=== PATIENT | female | born 1965 | race Caucasian/White ===

== ENCOUNTER 2016-10-22 01:09 | Emergency (ER) | payer BC, OTHER ==
[2016-10-22] MEDS ORDERED: Zofran 4 MG/2 ML VIAL ONE (01:32)
--- NOTE | 2016-10-22 01:34 | ERPHSYRPT ---
- History of Present Illness Time Seen by Provider: 10/22/16 01:15 Source: patient, family, EMS Exam Limitations: clinical condition Patient Subjective Stated Complaint: PT BROUGHT TO ED PER EMS FROM HOME-CALLED TO SCENE DUE TO PT BEING UNRESPONSIVE-EMS ADMINISTERED 2 MG OF NARCAN ET PT BEGAN RESPONDING-PT STATES THAT HE THINKS SHE HAD A SEIZURE-STATES THAT PT LEGS WERE MOVING Triage Nursing Assessment: PT ARRIVED TO ED RESPONSIVE TO VOICE-NOT ANSWERING QUESTIONS-RESP NONLABORED ET SLIGHTLY SHALLOW-PUPILS RESPONSIVE Physician History: Pt. remembers V/D and abd pain after eating at [employer]. states pt. had seizure-like activity. EMS found her unresponsive with response to Narcan, now responsive with CN 2-12 intact. Reported H/O drug abuse for both she and her . 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) Severity: moderate Deficits: no difficulties Baseline/Normal Cognition: alert oriented x 3 Current Cognition: alert/disoriented to time Baseline Gait: walks w/o assistance Associated Symptoms: confusion, nausea, vomiting, weakness, seizures, other ( Abd pain) Allergies/Adverse Reactions: ropinirole [From Requip] Adverse Reaction (Verified 10/22/16 01:50) Vomiting Home Medications: Acyclovir 800 mg [Zovirax 800 mg] 800 mg PO DAILY 10/22/16 [History] Escitalopram Oxalate 20 mg PO DAILY 10/22/16 [History] Ferrous Sulfate 325 mg [Feosol 325 mg] 325 mg PO BID 10/22/16 [History] Levothyroxine Sodium 75 Mcg [Synthroid 75 Mcg] 75 mcg PO DAILY 10/22/16 [ History] Pramipexole Di-HCl 0.5 mg [Mirapex 0.5 MG Tablet] 0.5 mg PO HS 10/22/16 [ History] Hx Tetanus, Diphtheria Vaccination/Date Given: No Hx Influenza Vaccination/Date Given: Yes Hx Pneumococcal Vaccination/Date Given: No Immunizations Up to Date: Yes - Review of Systems Constitutional: Malaise, Weakness Eyes: No Symptoms Ears, Nose, & Throat: No Symptoms Respiratory: No Symptoms Cardiac: No Symptoms Abdominal/Gastrointestinal: Abdominal Pain, Nausea, Vomiting, Diarrhea Genitourinary Symptoms: No Symptoms Musculoskeletal: No Symptoms Skin: No Symptoms Neurological: Seizure Psychological: Drug Abuse Endocrine: No Symptoms Hematologic/Lymphatic: Anemia Immunological/Allergic: No Symptoms - Past Medical History Pertinent Past Medical History: Yes Neurological History: Seizures, Other Other Medical History: HX OF BRAIN BLEED. RESTLESS LEG - Past Surgical History Past Surgical History: Yes Neuro Surgical History: Other - Social History Smoking Status: Never smoker Exposure to second hand smoke: No Drug Use: none Patient Lives Alone: No - Nursing Vital Signs Nursing Vital Signs: Initial Vital Signs Pulse Rate 80 10/22/16 01:11 Respiratory Rate 18 10/22/16 01:11 Blood Pressure 132/75 10/22/16 01:11 O2 Sat by Pulse Oximetry 99 10/22/16 01:11 Pain Scale Pain Intensity 0 - Lizzeth Coma Scale Best Eye Response (Lizzeth): (3) open to voice Best Verbal Response (Yellow Jacket): (5) oriented Best Motor Response (Yellow Jacket): (6) obeys commands Lizzeth Total: 14 - Physical Exam General Appearance: moderate distress Eye Exam: bilateral eye: normal inspection, PERRL, EOMI Respiratory: normal breath sounds, lungs clear, airway intact, No respiratory distress Cardiovascular: regular rate/rhythm, normal heart sounds, normal peripheral pulses Gastrointestinal: soft, normal bowel sounds, tenderness (diffusely), No distention Extremity Exam: normal inspection, normal range of motion, pelvis stable Mental Status: oriented x 3, 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, 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 Exam: normal hearing Motor/Sensory: no motor deficit, no sensory deficit Skin Exam: normal color, warm, dry SpO2 Interpretation: normal SpO2: 99 Oxygen Delivery: Non-rebreather - Course Nursing assessment & vital signs reviewed: Yes EKG Interpreted by Me: RATE (72), Sinus Rhythm, NORMAL AXIS, NORMAL INTERVALS, Other (Lateral T wave flattening.) - Radiology Exams Chest X-ray Interpretation: Interpreted by me, Reviewed by me, Negative - CT Exams Head CT Interpretation: Negative, Tele-radiologist Report Ordered Tests: Active Orders 24 hr Category Date Time Status Accucheck STAT Care 10/22/16 01:46 Active Clinical Sciences Professor STAT Care 10/22/16 01:47 Active Clean Catch Urine Specimen STAT Care 10/22/16 01:46 Active EKG-ER Only STAT Care 10/22/16 01:46 Active IV Insertion STAT Care 10/22/16 01:46 Active NPO (ED) STAT Care 10/22/16 01:46 Active Oxygen-ED Only NASAL CANNULA 2 lpm Care 10/22/16 01:46 Active CHEST 1 VIEW (PORTABLE) Stat Exams 10/22/16 01:47 Taken HEAD WITHOUT CONTRAST [CT] Stat Exams 10/22/16 01:47 Taken ACETAMINOPHEN Stat Lab 10/22/16 03:04 Received CBC W DIFF Stat Lab 10/22/16 02:39 Completed CMP Stat Lab 10/22/16 02:39 Completed ETHYL ALCOHOL Stat Lab 10/22/16 03:04 Received Lactic Acid Stat Lab 10/22/16 02:36 Completed SALICYLATE Stat Lab 10/22/16 03:04 Received UA Stat Lab 10/22/16 02:07 Completed Urine Triage Profile Stat Lab 10/22/16 02:07 Completed Medication Summary Discontinued Medications Generic Name Dose Route Start Last Admin Trade Name Freq PRN Reason Stop Dose Admin Sodium Chloride 1,000 mls @ 999 mls/hr 10/22/16 01:46 10/22/16 01:54 Sodium Chloride 0.9% 1000 Ml IV 10/22/16 02:46 999 mls/hr .Q1H1M STA Administration Sodium Chloride Confirm 10/22/16 01:52 Sodium Chloride 0.9% 1000 Ml Administered 10/22/16 01:53 Dose 1,000 mls @ ud .ROUTE .STK-MED ONE Ondansetron HCl Confirm 10/22/16 01:32 Zofran 4 Mg/2 Ml Vial Administered 10/22/16 01:33 Dose 4 mg .ROUTE .STK-MED ONE Ondansetron HCl 4 mg 10/22/16 01:46 10/22/16 01:54 Zofran 4 Mg/2 Ml Vial IV 10/22/16 01:47 4 mg STAT ONE Administration Lab/Rad Data: Laboratory Result Diagrams 10/22/16 02:39 10/22/16 02:39 Laboratory Results 10/22/16 10/22/16 10/22/16 Range/Units 02:39 02:39 02:36 WBC 14.3 H (4.0-10.5) K/mm3 RBC 3.87 L (4.1-5.4) M/mm3 Hgb 12.9 (12.0-16.0) gm/dl Hct 38.6 (35-47) % MCV 99.7 (78-100) fl MCH 33.3 H (26-32) pg MCHC 33.4 (32-36) g/dl RDW 13.0 (11.5-14.0) % Plt Count 281 (150-450) K/mm3 MPV 8.9 (6-9.5) fl Gran % 78.2 H (36.0-66.0) % Lymphocytes % 12.8 L (24.0-44.0) % Monocytes % 7.5 (0.0-12.0) % Eosinophils % 1.4 (0.00-5.0) % Basophils % 0.1 (0.0-0.4) % Basophils # 0.02 (0-0.4) Sodium 142 (136-145) mEq/L Potassium 3.8 (3.5-5.1) mEq/L Chloride 107 (98-107) mEq/L Carbon Dioxide 25.0 (21-32) mEq/L Anion Gap 13.9 (5-15) MEQ/L BUN 12 (9-20) mg/dL Creatinine 0.85 (0.55-1.30) mg/dl Estimated GFR > 60 ML/MIN Glucose 118 H (70-110) MG/DL Lactic Acid 1.7 (0.4-2.0) Calcium 8.5 (8.5-10.1) mg/dL Total Bilirubin 0.40 (0.2-1.0) mg/dL AST 14 L (15-37) U/L ALT 26 (12-78) U/L Alkaline Phosphatase 71 (46-116) U/L Serum Total Protein 6.9 (6.4-8.2) gm/dL Albumin 3.4 (3.4-5.0) g/dL Ur Collection Type Urine Color (YELLOW) Urine Appearance (CLEAR) Urine pH (5-6) Ur Specific Montara (1.005-1.025) Urine Protein (Negative) Urine Ketones (NEGATIVE) Urine Blood (0-5) Romulo/ul Urine Nitrite (NEGATIVE) Urine Bilirubin (NEGATIVE) Urine Urobilinogen (0-1) mg/dL Ur Leukocyte Esterase (NEGATIVE) Urine Glucose (NEGATIVE) mg/dL Urine Opiates Level (NEGATIVE) Ur Methadone (NEGATIVE) Urine Barbiturates (NEGATIVE) Ur Phencyclidine (PCP) (NEGATIVE) Urine Amphetamine (NEGATIVE) U Benzodiazepine Level (NEGATIVE) Urine Cocaine (NEGATIVE) Urine Marijuana (THC) (NEGATIVE) Specimen Received 10/22/16 10/22/16 Range/Units 02:07 02:07 WBC (4.0-10.5) K/mm3 RBC (4.1-5.4) M/mm3 Hgb (12.0-16.0) gm/dl Hct (35-47) % MCV (78-100) fl MCH (26-32) pg MCHC (32-36) g/dl RDW (11.5-14.0) % Plt Count (150-450) K/mm3 MPV (6-9.5) fl Gran % (36.0-66.0) % Lymphocytes % (24.0-44.0) % Monocytes % (0.0-12.0) % Eosinophils % (0.00-5.0) % Basophils % (0.0-0.4) % Basophils # (0-0.4) Sodium (136-145) mEq/L Potassium (3.5-5.1) mEq/L Chloride (98-107) mEq/L Carbon Dioxide (21-32) mEq/L Anion Gap (5-15) MEQ/L BUN (9-20) mg/dL Creatinine (0.55-1.30) mg/dl Estimated GFR ML/MIN Glucose (70-110) MG/DL Lactic Acid (0.4-2.0) Calcium (8.5-10.1) mg/dL Total Bilirubin (0.2-1.0) mg/dL AST (15-37) U/L ALT (12-78) U/L Alkaline Phosphatase (46-116) U/L Serum Total Protein (6.4-8.2) gm/dL Albumin (3.4-5.0) g/dL Ur Collection Type VOID Urine Color YELLOW (YELLOW) Urine Appearance CLEAR (CLEAR) Urine pH 6.0 (5-6) Ur Specific Mont[place] 1.005 (1.005-1.025) Urine Protein NEGATIVE (Negative) Urine Ketones NEGATIVE (NEGATIVE) Urine Blood NEGATIVE (0-5) Romulo/ul Urine Nitrite NEGATIVE (NEGATIVE) Urine Bilirubin NEGATIVE (NEGATIVE) Urine Urobilinogen NORMAL (0-1) mg/dL Ur Leukocyte Esterase NEGATIVE (NEGATIVE) Urine Glucose NEGATIVE (NEGATIVE) mg/dL Urine Opiates Level NEG. (NEGATIVE) Ur Methadone NEG. (NEGATIVE) Urine Barbiturates NEG. (NEGATIVE) Ur Phencyclidine (PCP) NEG. (NEGATIVE) Urine Amphetamine NEG. (NEGATIVE) U Benzodiazepine Level NEG. (NEGATIVE) Urine Cocaine NEG. (NEGATIVE) Urine Marijuana (THC) NEG. (NEGATIVE) Specimen Received 10/22/16 0200 - Progress Progress: improved Discussed with Dr.: Mack (accepts observation) Counseled pt/family regarding: lab results, diagnosis, rad results - Departure Time of Disposition: 03:20 Departure Disposition: Observation Clinical Impression: Syncope, vasovagal, Seizure Condition: Stable Critical Care Time: No Referrals: ROBIN CRUZ [ACTIVE STAFF] -
[2016-10-22] MEDS ORDERED: Sodium Chloride 0.9% 1000 ML 1,000 ML IV STA (01:46)
[2016-10-22] MEDS ORDERED: Zofran 4 MG/2 ML VIAL IV ONE (01:46)
[2016-10-22] MEDS ORDERED: Sodium Chloride 0.9% 1000 ML 1,000 ML ONE (01:52)
[2016-10-22 02:11] LABS: Bilirubin NEGATIVE (NEGATIVE); Blood NEGATIVE Ery/ul (0-5); COMPLETE URINE MICROSCOPIC? NO; Collection Type VOID; Glucose NEGATIVE (NEGATIVE); Leukocyte Esterase NEGATIVE (NEGATIVE)
[2016-10-22 02:42] LABS: BASOPHIL % 0.1 % (0.0-0.4); Eosinophil % 1.4 % (0.00-5.0); Granulocytes % 78.2 % (36.0-66.0); Lymphocytes % 12.8 % (24.0-44.0); Mean Cell Volume 99.7 fl (78-100); Mean Corpuscular Hemoglobin 33.3 pg (26-32); Mean Platelet Volume 8.9 fl (6-9.5); Monocytes % 7.5 % (0.0-12.0); Platelet Count 281 K/mm3 (150-450); Red Blood Count 3.87 M/mm3 (4.1-5.4); White Blood Count 14.3 K/mm3 (4.0-10.5)
[2016-10-22 02:48] VITALS: BP 105/55; PULSE 81
[2016-10-22 03:06] LABS: ALBUMIN 3.4 g/dL (3.4-5.0); ALKALINE PHOSPHATASE 71 U/L (46-116); ANION GAP 13.9 MEQ/L (5-15); BLOOD UREA NITROGEN 12 mg/dL (9-20); CHLORIDE 107 mEq/L (98-107); Glucose 118 MG/DL (70-110); Potassium 3.8 mEq/L (3.5-5.1); SGOT/AST 14 U/L (15-37); SGPT/ALT 26 U/L (12-78); SODIUM 142 mEq/L (136-145); Total Protein 6.9 gm/dL (6.4-8.2)
[2016-10-22 03:21] LABS: ACETAMINOPHEN < 2.0 ug/ml (10-30); ETHYL ALCOHOL < 0.010 % (0.00-0.01)
[2016-10-22 03:22] VITALS: O2SAT 99
--- NOTE | 2016-10-22 09:26 | XRAY ---
Indication: Seizure. Multiple contiguous axial images obtained through the head without contrast. Comparison: June 25, 2011. Normal appearing brain parenchyma, ventricles, and bony calvarium. There is now complete opacification of the right mastoid air cells. Remaining visualized paranasal sinuses and left mastoid air cells are clear. Impression: No acute intracranial abnormalities. Right mastoid air cell opacification/fluid presumed inflammatory. Comment: Preliminary interpretation was made by [facility]. Right mastoid effusion not reported and not felt to be critical finding. CTDI 48.76
--- NOTE | 2016-10-22 09:27 | XRAY ---
Indication: Seizure. Comparison: June 25, 2011. Portable chest demonstrates mild prominent interstitial lung markings with left base fibrosis/scarring. Remaining lungs clear. Heart is not enlarged. Bony thorax intact. Impression: Nonacute chest.
== END 2016-10-22 03:51 | disposition left against medical advice (07) ==
LOC: ED 01:09
DX: R55 Syncope and collapse (principal); R56.9 Unspecified convulsions; R19.7 Diarrhea, unspecified; Z87.898 Personal history of other specified conditions; R11.2 Nausea with vomiting, unspecified; R41.0 Disorientation, unspecified; R53.1 Weakness
CPT/HCPCS: 36415; 70450; 71010; 80053; 80307; 81002; 82962; 83605; 85025; 93005; 93041; 96360; 96374; 99284; G0481; J2405